=== PATIENT | male | born 1990 | race Caucasian/White ===

== ENCOUNTER 2018-04-30 06:45 | Day surgery (SDC) | payer BC ==
[2018-04-29 12:34] VITALS: BMI 23.3
[2018-04-30] MEDS ORDERED: Fentanyl 100 MCG/2 ML VIAL ONE ×2 (08:40→09:59)
[2018-04-30] MEDS ORDERED: Midazolam HCl 2 mg/2 ml Vial ONE (08:41)
[2018-04-30] MEDS ORDERED: Naloxone HCl 0.4 mg/ml Vial ONE ×2 (09:33→11:17)
[2018-04-30] MEDS ORDERED: Hydrocodone-Acetamin 15 ML UDCUP ONE ×2 (10:41)
[2018-04-30] MEDS ORDERED: Dexamethasone 20 MG/5 ML VIAL ONE (11:17)
[2018-04-30] MEDS ORDERED: Ondansetron PF 4 MG/2 ML Vial ONE (11:17)
[2018-04-30] MEDS ORDERED: Glycopyrrolate 0.2 MG/ML 5 ML SYRINGE ONE (11:17)
[2018-04-30] MEDS ORDERED: PROPOFOL 200 MG/20 ML VIAL ONE (11:17)
[2018-04-30] MEDS ORDERED: Lidocaine 1% PF 5 ML VIAL ONE (11:17)
[2018-04-30] MEDS ORDERED: Metoclopramide HCl 10 MG/2 ML VIAL ONE (11:17)
--- NOTE | 2018-04-30 23:01 | OP ---
DATE OF PROCEDURE: 04/30/2018 PREOPERATIVE DIAGNOSIS: Obstructive uvular hypertrophy upper airway obstruction. POSTOPERATIVE DIAGNOSIS: Obstructive uvular hypertrophy upper airway obstruction. PROCEDURE PERFORMED: Uvulectomy. PROCEDURE IN DETAIL: After consent was obtained, the patient was identified, brought to the operating room, and placed on the operating room table in the supine position. General endotracheal anesthesia was obtained. The patient was positioned for surgery. After he was positioned for surgery, a Doreen-Ronny mouth gag was used to facilitate oropharyngeal exposure, and then we grasped the uvula and retracted that. Made some vertical incisions on the soft tissue and mucosa lateral to the insertion of uvula. We then removed small crescentic portions of the lateral pharyngeal musculature. We then transected the uvula in an inverted-V form and stump. The mucosa was then reapproximated with a quilting sutures followed by interrupted in the mucosa. The patient was awakened, extubated, and taken to recovery room in stable condition . Job ID: [id number]
== END 2018-04-30 11:30 | disposition home or self-care (01) ==
LOC: SDC 06:45
PROVIDERS: ATTEND Specialist
PROC: 0CTNXZZ Resection of Uvula, External Approach (ICD-10-PCS; principal; 2018-04-30)
DX: K13.79 Other lesions of oral mucosa (principal); G43.909 Migraine, unspecified, not intractable, without status migrainosus; F45.8 Other somatoform disorders; Z79.899 Other long term (current) drug therapy
CPT/HCPCS: 88302; 96374; J1100; J2001; J2250; J2310; J2405; J2704; J2765; J3010